=== PATIENT | female | born 1965 | race Caucasian/White ===

== ENCOUNTER 2017-11-18 09:20 | Day surgery (SDC) | payer OTHER ==
[2017-11-12 13:44] VITALS: BMI 22.8
[2017-11-18] MEDS ORDERED: LIDOCAINE HCL/PF 2% SDV 5ML VIAL ONE (09:36)
[2017-11-18] MEDS ORDERED: PROPOFOL 20 ML ONE ×2 (09:36)
[2017-11-18 09:49] VITALS: TEMP 98.1
[2017-11-18 11:34] VITALS: BP 104/64; PULSE 74
== END 2017-11-18 11:45 | disposition home or self-care (01) ==
LOC: FASU-ENDO 09:20
PROVIDERS: ATTEND Internal Medicine Gastroenterology
PROC: 0DJD8ZZ Inspection of Lower Intestinal Tract, Via Natural or Artificial Opening Endoscopic (ICD-10-PCS; principal; 2017-11-18 10:46)
DX: K92.2 Gastrointestinal hemorrhage, unspecified (principal); K64.3 Fourth degree hemorrhoids
CPT/HCPCS: 84703

== ENCOUNTER 2018-08-23 18:14 | Emergency (ER) | payer OTHER ==
[2018-08-23 18:28] VITALS: BP 111/80; PULSE 70; TEMP 98.3; BMI 23.2
--- NOTE | 2018-08-24 03:11 | PDOC ---
Documentation entered by Gordo Webster SCRIBE, acting as scribe for Esther Sage MD. Esther Sage MD: This documentation has been prepared by the Darin hill Daniel, SCRIBE, under my direction and personally reviewed by me in its entirety. I confirm that the documentation accurately reflects all work, treatment, procedures, and medical decision making performed by me. History of Present Illness - General Chief Complaint: Injury Stated Complaint: LEFT FOOT PAIN Time Seen by Provider: 08/23/18 19:18 History Source: Patient Exam Limitations: No Limitations - History of Present Illness Initial Comments: 08/23/18 19:46 The patient is a 52 year old female with no past medical history here today for evaluation of left foot pain. The patient reports that she was walking with heels on yesterday when she slipped on some oil. She reports left medial ankle swelling and lateral foot tenderness. Patient denies headache, lightheadedness. Denies fever, chills. Denies chest pain, shortness of breath. Denies nausea, vomiting, diarrhea, abdominal pain. Denies head strike or loss of consciousness. Allergies: NKA Past History - Past Medical History Allergies/Adverse Reactions: Allergies Allergy/AdvReac Type Severity Reaction Status Date / Time No Known Allergies Allergy Verified 08/23/18 18:14 Home Medications: Ambulatory Orders Cholecalciferol (Vitamin D3) [Vitamin D3] 1,000 unit PO DAILY 11/12/17 Anemia: No Asthma: No Cancer: Yes (Left Breast) Cardiac Disorders: No CVA: No COPD: No CHF: No Dementia: No Diabetes: No GI Disorders: Yes (hemorrhoids) Disorders: No HTN: No Hypercholesterolemia: No Liver Disease: No Seizures: No Thyroid Disease: No - Surgical History Abdominal Surgery: No Appendectomy: No Cardiac Surgery: No Cholecystectomy: No Lung Surgery: No Neurologic Surgery: No Orthopedic Surgery: No - Suicide/Smoking/Psychosocial Hx Smoking History: Never smoked Have you smoked in the past 12 months: No Information on smoking cessation initiated: No Hx Alcohol Use: No Drug/Substance Use Hx: No Substance Use Type: None Hx Substance Use Treatment: No Review of Systems - Review of Systems Able to Perform ROS?: Yes Comments:: 08/23/18 19:47 All systems are reviewed and negative except as noted in the HPI *Physical Exam - Vital Signs Last Vital Signs Temp Pulse Resp BP Pulse Ox 98.3 F 70 20 111/80 97 08/23/18 18:14 08/23/18 18:14 08/23/18 18:14 08/23/18 18:14 08/23/18 18:14 - Physical Exam Comments: 08/23/18 19:47 GENERAL: Awake, alert, and fully oriented, in no acute distress HEAD: No signs of trauma EYES: PERRLA, EOMI, sclera anicteric, conjunctiva clear ENT: Auricles normal inspection, hearing grossly normal, nares patent, oropharynx clear without exudates. Moist mucosa NECK: Normal ROM, supple, no lymphadenopathy, JVD, or masses LUNGS: Breath sounds equal, clear to auscultation bilaterally. No wheezes, and no crackles HEART: Regular rate and rhythm, normal S1 and S2, no murmurs, rubs or gallops ABDOMEN: Soft, nontender, normoactive bowel sounds. No guarding, no rebound. No masses EXTREMITIES: +mild edema and moderate ecchymosis of the lateral aspect of the left ankle and foot with point tenderness over the base of the fifth metatarsal with no deformity. +mild edema and tenderness just distal to the left medial malleolus with no deformity or ecchymosis. No other significant deformity to ankle or foot. Normal range of motion. No clubbing or cyanosis. No cords, erythema NEUROLOGICAL: Cranial nerves II through XII grossly intact. Normal speech, normal gait SKIN: Warm, Dry, normal turgor, no rashes or lesions noted. Medical Decision Making - Medical Decision Making As noted above, this 52-year-old woman presents with an injury to her left foot , sustained when she turned her foot while wearing high heels yesterday. No other injury sustained/no other complaints. Exam notable for point tenderness and ecchymosis in the mid lateral aspect of the left foot (at the base of the fifth metatarsal bone). She also had some mild tenderness/edema medial aspect. Ankle was not edematous or tender. Left foot x-ray performed: Preliminary interpretation by chapito evidence of fracture or dislocation. Results discussed with the patient. Jarrod wrap applied to her foot. She has been advised to use firm soled shoes for the next week, avoiding high heels. If she has persistent pain/swelling, she should consult an orthopedist. Patient does not have an orthopedist currently; she was given referral information for Drs. Roland/Elroy luo. *DC/Admit/Observation/Transfer Diagnosis at time of Disposition: Sprain of left foot Qualifiers: Encounter type: initial encounter Qualified Code(s): S93.602A - Unspecified sprain of left foot, initial encounter - Discharge Dispostion Disposition: HOME Condition at time of disposition: Stable - Referrals Referrals: Jose Raul Roland MD [Staff Physician] - - Patient Instructions Printed Discharge Instructions: DI for Foot Sprain Additional Instructions: ice/elevation of 1-2 days Jarrod wrap during the day for the next week Use shoes with good arch/sole support(flat or low heel) Follow-up with orthopedics (Dr. Roland/Elroy luo) if signficant pain/swelling/ bruising persist more than 1 week - Post Discharge Activity
== END 2018-08-23 19:43 | disposition home or self-care (01) ==
LOC: FER 18:14
DX: S93.602A Unspecified sprain of left foot, initial encounter (principal); X58.XXXA Exposure to other specified factors, initial encounter; Y93.41 Activity, dancing; Y92.9 Unspecified place or not applicable; Z85.3 Personal history of malignant neoplasm of breast
CPT/HCPCS: 73630-TC-LT; 99282-25

== ENCOUNTER 2020-03-03 10:26 | Emergency (ER) | payer OTHER | END 2020-03-03 10:58 | disposition home or self-care (01) | LOC: JVIRT 10:26 | DX: R07.0 Pain in throat (principal); Z11.59 Encounter for screening for other viral diseases | CPT/HCPCS: C9803; Q3014-GT; U0003 ==

== ENCOUNTER 2020-03-14 18:15 | Emergency (ER) | payer OTHER | END 2020-03-14 20:15 | disposition home or self-care (01) | LOC: JVIRT 18:15 | DX: Z03.818 Encounter for observation for suspected exposure to other biological agents ruled out (principal) | CPT/HCPCS: C9803; G2012-GT; U0003 ==